=== PATIENT | female | born 1985 ===

== ENCOUNTER 2018-08-01 04:16 | Emergency (ER) | payer OTHER ==
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
[2018-08-01] MEDS ORDERED: IBUPROFEN PO ONE (06:02)
[2018-08-01] MEDS ORDERED: NORCO 5/325 PO ONE (06:02)
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
[2018-08-01 07:29] VITALS: BP 120/76
== END 2018-08-01 07:27 | disposition home or self-care (01) ==
LOC: ED 04:16
DX: S20.312A Abrasion of left front wall of thorax, initial encounter (principal); J45.909 Unspecified asthma, uncomplicated; F17.200 Nicotine dependence, unspecified, uncomplicated; V89.2XXA Person injured in unspecified motor-vehicle accident, traffic, initial encounter; Y93.89 Activity, other specified; Y92.488 Other paved roadways as the place of occurrence of the external cause; Y99.8 Other external cause status
CPT/HCPCS: 74176; 99283

== ENCOUNTER 2020-09-18 00:24 | Emergency (ER) | payer OTHER ==
[2020-09-18 00:57] VITALS: BP 137/93
[2020-09-18] MEDS ORDERED: ASPIRIN 325 MG TAB PO ONE ×2 (01:47→04:30)
[2020-09-18] MEDS ORDERED: predniSONE 20 MG TAB PO ONE ×2 (01:48→04:30)
[2020-09-18] MEDS ORDERED: ACETAMINOPHEN 500 MG TAB PO ONE ×2 (01:49→04:30)
[2020-09-18 03:12] LABS: Hematocrit 38.4 % (30.3-42.9); Hemoglobin 13.8 gm/dl (10.1-14.3); Mean Corpuscular HGB Conc 36 % (30-34); Mean Corpuscular Volume 100 fl (79-97); Platelet Count 235 K/mm3 (140-440); Red Blood Count 3.85 M/mm3 (3.65-5.03); Red Cell Distribution Width 13.4 % (13.2-15.2)
[2020-09-18 03:23] LABS: Alanine Aminotransferase 13 units/L (7-56); Albumin 4.3 g/dL (3.9-5); BUN/Creatinine Ratio 13; Blood Urea Nitrogen 10 mg/dL (7-17); Calcium 8.9 mg/dL (8.4-10.2); Hemolysis Index 2
--- NOTE | 2020-09-18 03:40 | XRay Report ---
CHEST 2 VIEWS 0115 INDICATION / CLINICAL INFORMATION: Chest Pain COMPARISON: None available. FINDINGS: SUPPORT DEVICES: None. HEART / MEDIASTINUM: No significant abnormality. LUNGS / PLEURA: No significant pulmonary or pleural abnormality. No pneumothorax. ADDITIONAL FINDINGS: No significant additional findings. IMPRESSION: No significant acute abnormality Signer Name: William Chau MD Signed: 09/18/2020 3:35 AM Workstation Name: [id number]
--- NOTE | 2020-09-18 03:40 | XRay Report ---
LEFT SHOULDER 3 VIEWS 0215 INDICATION: Left shoulder pain COMPARISON: None available. FINDINGS: Negative study Signer Name: William Chau MD Signed: 09/18/2020 3:36 AM Workstation Name: [id number]
[2020-09-18 04:12] LABS: Anisocytosis 1+; Platelet Estimate Consistent w Auto; Total Cells Counted 100
--- NOTE | 2020-09-18 04:40 | Emergency Department Report ---
ED General Adult HPI - General Chief complaint: Chest Pain Stated complaint: CHEST PAIN/LEFT SHOULDER PAIN Source: patient Mode of arrival: Ambulatory Limitations: No Limitations - History of Present Illness Initial comments: Patient is a 35-year-old -Indian female with past medical history of asthma who presents to the ED with complaint of acute onset persistent left- sided chest pain and left shoulder pain that radiated diffusely to the left for the last 1 week after heavy lifting at work. 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 Patient states that the symptoms have worsened in the last 3 days such that she has not been able to sleep because of worsening left arm, left shoulder and left sided chest wall pain and mid posterior thoracic pain. Patient denies fall, traumatic injury, dizziness, syncope, shortness of breath, change in vision, diaphoresis, nausea, vomiting, abdominal pain, headache, neck pain, fever and chills or cough or hemoptysis. MD Complaint: left shoulder pain; left-sided chest wall pain -: Sudden, week(s) (1) Location: chest, upper extremity (left shoulder) Radiation: back (mid-posterior thoracic pain) Severity scale (0 -10): 7 Quality: aching, sharp Consistency: constant Improves with: none Worsens with: movement Associated Symptoms: denies other symptoms, chest pain (left-sided). denies: confusion, cough, diaphoresis, fever/chills, headaches, loss of appetite, malaise, nausea/vomiting, shortness of breath, syncope, weakness Treatments Prior to Arrival: none - Related Data Previous Rx's Medication Instructions Recorded Last Taken Type Ibuprofen [Motrin 600 MG tab] 600 mg PO Q8H PRN #15 tablet 08/01/18 Unknown Rx Baclofen 20 mg PO Q12H PRN #30 tablet 09/18/20 Unknown Rx Naproxen 500 mg PO Q12H PRN #30 tablet 09/18/20 Unknown Rx traMADoL [Ultram] 50 mg PO Q6HR PRN #12 tablet 09/18/20 Unknown Rx Allergies Allergy/AdvReac Type Severity Reaction Status Date / Time No Known Allergies Allergy Unverified 08/01/18 04:18 ED Review of Systems ROS: Stated complaint: CHEST PAIN/LEFT SHOULDER PAIN Other details as noted in HPI Constitutional: denies: chills, fever Eyes: denies: eye pain, eye discharge, vision change ENT: denies: ear pain, throat pain Respiratory: denies: cough, shortness of breath, wheezing Cardiovascular: chest pain (Left-sided chest wall pain). denies: palpitations Endocrine: no symptoms reported Gastrointestinal: denies: abdominal pain, nausea, diarrhea Genitourinary: denies: urgency, dysuria, discharge Musculoskeletal: back pain (Mid posterior thoracic pain), arthralgia (Left shoul carri and arm pain). denies: joint swelling Skin: denies: rash, lesions Neurological: denies: headache, weakness, paresthesias Psychiatric: denies: anxiety, depression Hematological/Lymphatic: denies: easy bleeding, easy bruising ED Past Medical Hx - Past Medical History Hx Asthma: Yes Additional medical history: Heart problems - Surgical History Hx Appendectomy: Yes - Social History Smoking Status: Never Smoker - Medications Home Medications: Home Medications Medication Instructions Recorded Confirmed Last Taken Type Ibuprofen [Motrin 600 MG tab] 600 mg PO Q8H PRN #15 tablet 08/01/18 Unknown Rx Baclofen 20 mg PO Q12H PRN #30 tablet 09/18/20 Unknown Rx Naproxen 500 mg PO Q12H PRN #30 tablet 09/18/20 Unknown Rx traMADoL [Ultram] 50 mg PO Q6HR PRN #12 tablet 09/18/20 Unknown Rx ED Physical Exam - General Limitations: No Limitations General appearance: alert, in no apparent distress - Head Head exam: Present: atraumatic, normocephalic, normal inspection - Eye Eye exam: Present: normal appearance, PERRL, EOMI Pupils: Present: normal accommodation - ENT ENT exam: Present: normal exam, normal orophraynx, mucous membranes moist, TM's normal bilaterally, normal external ear exam - Neck Neck exam: Present: normal inspection, full ROM. Absent: tenderness - Respiratory Respiratory exam: Present: normal lung sounds bilaterally, chest wall tenderness (Palpable reproducible left-sided chest wall tenderness). Absent: respiratory distress, wheezes, rales, rhonchi, accessory muscle use, decreased breath sounds, prolonged expiratory - Cardiovascular Cardiovascular Exam: Present: regular rate, normal rhythm, normal heart sounds. Absent: systolic murmur, diastolic murmur, rubs, gallop - GI/Abdominal GI/Abdominal exam: Present: soft, normal bowel sounds. Absent: tenderness, guarding, rebound, hyperactive bowel sounds, hypoactive bowel sounds, organomegaly - Extremities Exam Extremities exam: Present: normal inspection, full ROM, tenderness (Palpable left shoulder and left arm tenderness with limited range of motion due to pain), normal capillary refill - Back Exam Back exam: Present: normal inspection, full ROM, tenderness (Palpable mid posterior thoracic paraspinal musculoskeletal tenderness), muscle spasm, paraspinal tenderness. Absent: CVA tenderness (R), CVA tenderness (L), vertebral tenderness - Neurological Exam Neurological exam: Present: alert, oriented X3, CN II-XII intact, normal gait, reflexes normal - Psychiatric Psychiatric exam: Present: normal affect, normal mood - Skin Skin exam: Present: warm, dry, intact, normal color. Absent: rash ED Course Vital Signs 09/18/20 00:56 Temperature 98.3 F Pulse Rate 75 Respiratory 16 Rate Blood Pressure 137/93 O2 Sat by Pulse 100 Oximetry ED Medical Decision Making - Lab Data Result diagrams: 09/18/20 01:53 09/18/20 01:53 - Radiology Data Radiology results: report reviewed, image reviewed [facility], [place] [address] [place] [address] XRay Report Signed Patient: CHRISTY CHO MR #: [id number] : 1985 Acct:[id number] Age/Sex: 35 / F ADM Date: 09/18/20 Loc: ED Attending Dr: Ordering Physician: LINDSAY NOYOLA Date of Service: 09/18/20 Procedure(s): XR shoulder 2+V LT Accession Number(s): [id number] cc: LINDSAY NOYOLA Fluoro Time In Minutes: LEFT SHOULDER 3 VIEWS 0215 INDICATION: Left shoulder pain COMPARISON: None available. FINDINGS: Negative study Signer Name: William Chau MD Signed: 09/18/2020 3:36 AM Workstation Name: [id number] Transcribed By: GJ Dictated By: William Chau MD Electronically Authenticated By: William Chau MD Signed Date/Time: 09/18/20335 DD/ 4 TD/TT: [facility], [place] [address] [place] [address] XRay Report Signed Patient: CHRISTY CHO MR #: [id number] : 1985 Acct:[id number] Age/Sex: 35 / F ADM Date: 09/18/20 Loc: ED Attending Dr: Ordering Physician: JENNA MYERS MD Date of Service: 09/18/20 Procedure(s): XR chest routine 2V Accession Number(s): [id number] cc: JENNA MYERS MD Fluoro Time In Minutes: CHEST 2 VIEWS 0115 INDICATION / CLINICAL INFORMATION: Chest Pain COMPARISON: None available. FINDINGS: SUPPORT DEVICES: None. HEART / MEDIASTINUM: No significant abnormality. LUNGS / PLEURA: No significant pulmonary or pleural abnormality. No pneumothorax. ADDITIONAL FINDINGS: No significant additional findings. IMPRESSION: No significant acute abnormality Signer Name: William Chau MD Signed: 09/18/2020 3:35 AM Workstation Name: [id number] Transcribed By: GJ Dictated By: William Chau MD Electronically Authenticated By: William Chau MD Signed Date/Time: 09/18/20334 DD/ 4 TD/TT: Print Cancel - Medical Decision Making This is a 35-year-old -Indian female with past medical history of asthma who presents to the ED with complaint of acute onset persistent left- sided chest pain and left shoulder pain that radiated diffusely to the left for the last 1 week after heavy lifting at work. 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 Patient states that the symptoms have worsened in the last 3 days such that she has not been able to sleep because of worsening left arm, left shoulder and left sided chest wall pain and mid posterior thoracic pain. In the ED, patient is alert and oriented x3 and is not in any distress. Chest x-ray showed no acute cardiopulmonary abnormalities or pneumonitis. Left shoulder x- ray showed no acute fractures or subluxations. All lab test results were reviewed and are all nonactionable. Patient was treated for pain in the ED and on reevaluation, patient's pain is well controlled medication. Patient has quite 0 and patient is PERC negative per Wells criteria. Patient symptoms likely due to muscle strain or muscle spasm following heavy lifting at work. Patient was therefore discharged home on pain medications and advised to follow- up with her primary care physician in 5 to 7 days for reevaluation or return to the ED immediately if symptoms get worse. - Differential Diagnosis Muscle strain; costochondritis; shoulder sprain; shoulder tendinitis Critical care attestation.: If time is entered above; I have spent that time in minutes in the direct care o f this critically ill patient, excluding procedure time. ED Disposition Clinical Impression: Acute costochondritis, Spasm of thoracic back muscle Muscle strain of chest wall Qualifiers: Encounter type: initial encounter Qualified Code(s): S29.011A - Strain of muscle and tendon of front wall of thorax, initial encounter Sprain of left shoulder Qualifiers: Encounter type: initial encounter Shoulder sprain type: unspecified sprain Qualified Code(s): S43.402A - Unspecified sprain of left shoulder joint, initial encounter Muscle strain of left upper extremity Qualifiers: Encounter type: initial encounter Qualified Code(s): S46.912A - Strain of unspecified muscle, fascia and tendon at shoulder and upper arm level, left arm, initial encounter Disposition: DC-01 TO HOME OR SELFCARE Is pt being admited?: No Does the pt Need Aspirin: No Condition: Stable Instructions: Muscle Cramps and Spasms, [id number], Costochondritis, [id number], Shoulder Sprain, Muscle Strain, [id number] Additional Instructions: All lab test results were reviewed and are all nonactionable. Chest x-ray showed no acute cardiopulmonary abnormalities or pneumonitis. Left shoulder x- ray showed no acute fractures or subluxations. Based on your history and physical exam findings, your symptoms are likely due to muscle strain following heavy lifting at work. Therefore take medication with food, drink plenty of fluids and follow-up with your primary care physician in 5 to 7 days for reevaluation or return to the ED immediately if symptoms get worse. Prescriptions: Baclofen 20 mg PO Q12H PRN #30 tablet PRN Reason: Muscle Spasm Naproxen 500 mg PO Q12H PRN #30 tablet PRN Reason: Pain , Severe (7-10) traMADoL [Ultram] 50 mg PO Q6HR PRN #12 tablet PRN Reason: Pain Referrals: [facility] [Provider Group] - 3-5 Days Forms: Work/School Release Form(ED) Time of Disposition: 04:44 Print Language: IRAQI
--- NOTE | 2020-09-19 10:35 | Electrocardiograph Report ---
[facility] Test Date: 2020-09-18 Test Time: 01:04:51 Pat Name: CHRISTY CHO Department: Room: Gender: F Maintenance Mgr: : 1985 Requested By: GERALDO KHALIL Order Number: [id number] Reading MD: Janene Chang Measurements Intervals [place] Rate: 71 P: 59 GA: 167 QRS: 71 QRSD: 91 T: -48 QT: 347 QTc: 379 Interpretive Statements Sinus rhythm Borderline T abnormalities, diffuse leads No previous ECG available for comparison Electronically Signed On 09-19-2020 10:35:16 EDT by Janene Chang
== END 2020-09-18 04:55 | disposition home or self-care (01) ==
LOC: ED 00:24
DX: S43.492A Other sprain of left shoulder joint, initial encounter (principal); S29.011A Strain of muscle and tendon of front wall of thorax, initial encounter; M94.0 Chondrocostal junction syndrome [Tietze]; M62.830 Muscle spasm of back; Z79.899 Other long term (current) drug therapy; X50.0XXA Overexertion from strenuous movement or load, initial encounter; Y93.89 Activity, other specified; Y92.89 Other specified places as the place of occurrence of the external cause; Y99.0 Civilian activity done for income or pay
CPT/HCPCS: 36415; 71046; 73030; 80053; 84484; 85007; 85025; 93005; 99284; J7512

== ENCOUNTER 2021-12-04 18:44 | Emergency (ER) | payer SELFPAY | END 2021-12-04 20:20 | disposition left against medical advice (07) | LOC: ED 18:44 | DX: R10.9 Unspecified abdominal pain (principal); Z53.21 Procedure and treatment not carried out due to patient leaving prior to being seen by health care provider ==